=== PATIENT | female | born 1970 | race Caucasian/White ===

== ENCOUNTER 2016-07-10 15:00 | Emergency (ER) | payer SELFPAY ==
[~2016-07-10] VITALS: Ht 165.1 cm; Wt 85.5 kg
[~2016-07-10 15:00] MED LIST: CARV12.5 PO; CITA20TA4 PO; FURO20 PO; KCL20 PO; LISI10 PO; NORC10TA2 PO; PHEN60TA PO; XANA1TAB6 PO
[2016-07-10 15:10] VITALS: BP 123/73; PULSE 56; RESP 16; TEMP 98.2; O2SAT 100; O2SAT 99
[2016-07-10] MEDS ORDERED: SODIUM CHLORIDE 0.9% FLUSH 10 ML FLUSH IVF PRN (15:15)
--- NOTE | 2016-07-10 15:28 | PD ---
HPI Chief Complaint: Chest Pain Time Seen by Provider: 15:07 Travel History International Travel<30 days: No Contact w/Intl Traveler<30days: No Traveled to known affect area: No History of Present Illness HPI Is a 46-year-old woman who presents to the emergency department complaining of chest pain and trouble breathing. She states she was retaining water and had increased lower extremity swelling and weight gain and so she went to her primary doctor about a week ago and increased her Lasix from 20 twice a day to 40 in the morning and 20 at night. Lower extremity swelling is improved but she is continuing to have shortness of breath, especially at night, with orthopnea and increasing dyspnea on exertion. She states she often wakes up at night short of breath and has to sit up the side of the bed. States she often has sweats but denies any fevers or chills. She otherwise had been feeling generally well. She called her product safety consultant, Dr. Shay RIVERA, whose office referred her to the emergency department. History Past Medical History Narrative Medical Hypertension Diabetes Anxiety Seizures Remote tobacco use, quit 10 years ago LMP: 07/10/16 : 4 Para: 3 Social History Alcohol Use: No Tobacco Use: No (quit 2007 after 10 year hx) Allergies-Medications (Allergen,Severity, Reaction): Coded Allergies: No Known Allergies (Verified , 07/10/16) Reported Meds & Prescriptions Reported Meds & Active Scripts Active Kcl 20 Meq Tab (Potassium Chloride) 20 Meq Tabcr 30 Meq PO DAILY 30 Days Phenobarbital 60 Mg Tab 60 Mg PO Q8HR 30 Days Prinivil 10 mg (Lisinopril) 10 Mg Tab 10 Mg PO Q12HR 30 Days Lasix 20 Mg Tab (Furosemide) 20 Mg Tab 20 Mg PO BID@09,18 30 Days Coreg 12.5 mg (Carvedilol) 12.5 Mg Tab 25 Mg PO Q12HR 30 Days Reported [place] 10-325 mg (Hydrocodone-Acetaminophen 10-325 mg) 1 Tab 1 Tab PO Q4H PRN Citalopram Hydrobromide 20 Mg Tab 20 Mg PO DAILY Xanax 1 mg (Alprazolam) Alprazolam 1 mg Tab 1 Tab PO TID PRN Review of Systems Except as stated in HPI: all other systems reviewed are Neg Physical Exam Narrative GENERAL: This is a well-appearing 46-year-old man, no acute distress. SKIN: Warm and dry. NECK: Trachea midline. No JVD. CARDIOVASCULAR: Regular rate and rhythm. No murmur appreciated. RESPIRATORY: No accessory muscle use. Clear to auscultation. Breath sounds equal bilaterally. GASTROINTESTINAL: Abdomen soft, non-tender, nondistended. Hepatic and splenic margins not palpable. MUSCULOSKELETAL: No obvious deformities. No significant edema at this time. NEUROLOGICAL: Awake and alert. No obvious cranial nerve deficits. Motor grossly within normal limits. Normal speech. PSYCHIATRIC: Appropriate mood and affect; insight and judgment normal. Data Data Last Documented VS Vital Signs Date Time Temp Pulse Resp B/P Pulse Ox O2 Delivery O2 Flow Rate FiO2 07/10/16 15:19 57 16 100 Nasal Cannula 2 07/10/16 15:10 98.2 123/73 Orders Complete Blood Count With Diff (07/10/16 15:15) Comprehensive Metabolic Panel (07/10/16 15:15) B-Type Natriuretic Peptide (07/10/16 15:15) Magnesium (Mg) (07/10/16 15:15) Troponin I (07/10/16 15:15) Iv Access Insert/Monitor (07/10/16 15:15) Ecg Monitoring (07/10/16 15:15) Oximetry (07/10/16 15:15) Oxygen Administration (07/10/16 15:15) Chest, Pa & Lat (07/10/16 15:15) Sodium Chloride 0.9% Flush (Ns Flush) (07/10/16 15:15) Labs Laboratory Tests Test 07/10/16 15:40 White Blood Count 7.7 TH/MM3 Red Blood Count 4.91 MIL/MM3 Hemoglobin 11.4 GM/DL Hematocrit 35.3 % Mean Corpuscular Volume 71.9 FL Mean Corpuscular Hemoglobin 23.2 PG Mean Corpuscular Hemoglobin 32.3 % Concent Red Cell Distribution Width 16.8 % Platelet Count 284 TH/MM3 Mean Platelet Volume 9.0 FL Neutrophils (%) (Auto) 55.4 % Lymphocytes (%) (Auto) 36.4 % Monocytes (%) (Auto) 7.2 % Eosinophils (%) (Auto) 0.5 % Basophils (%) (Auto) 0.5 % Neutrophils # (Auto) 4.2 TH/MM3 Lymphocytes # (Auto) 2.8 TH/MM3 Monocytes # (Auto) 0.6 TH/MM3 Eosinophils # (Auto) 0.0 TH/MM3 Basophils # (Auto) 0.0 TH/MM3 CBC Comment AUTO DIFF Sodium Level 137 MEQ/L Potassium Level 4.5 MEQ/L Chloride Level 103 MEQ/L Carbon Dioxide Level 25.3 MEQ/L Anion Gap 9 MEQ/L Blood Urea Nitrogen 18 MG/DL Creatinine 0.84 MG/DL Estimat Glomerular Filtration 73 ML/MIN Rate Random Glucose 89 MG/DL Calcium Level 9.5 MG/DL Magnesium Level 2.2 MG/DL Total Bilirubin 0.2 MG/DL Aspartate Amino Transf 10 U/L (AST/SGOT) Alanine Aminotransferase 17 U/L (ALT/SGPT) Alkaline Phosphatase 87 U/L Troponin I LESS THAN 0.02 NG/ML B-Type Natriuretic Peptide 12 PG/ML Total Protein 8.2 GM/DL Albumin 3.7 GM/DL [facility] Medical Decision Making Medical Screen Exam Complete: Yes Emergency Medical Condition: Yes Interpretation(s) My review of EKG: Normal sinus rhythm at a rate of 62, slightly leftward axis, normal intervals, poor R-wave progression, no acute ischemia. LABS: CBC unremarkable. CMP unremarkable Troponin negative BNP 12 Chest x-ray: Normal examination. Differential Diagnosis CHF, ACS, volume overload, other Narrative Course Medical decision making INITIAL: 46-year-old woman who presents to the emergency Department with shortness of breath and intermittent chest pain. Distally she had more volume overload is been gradually improving. She states before her ankle could not spent on her ankle and now is loosely on the ankle. I don't see any pitting edema in the lower extremities now. She still having orthopnea and dyspnea on exertion. Her lungs are clear. We'll check labs, troponin, EKG, chest x-ray, reassess. FINAL: Initial workups unremarkable. I think patient has been successfully diuresis at home with increased dose of Lasix prescribed by her primary physician. She looks well now. BNP is not elevated. Is no pulmonary edema. Troponin is negative. I reviewed the patient's heart catheterization from last year. She had clean coronaries no coronary artery calcifications. I don't think she needs to stay for chest pain Center evaluation. Recommend close follow-up with her product safety consultant. Patient agreeable. Diagnosis Primary Impression: Cardiomyopathy Qualified Code: I42.9 - Cardiomyopathy, unspecified type Additional Impression: Congestive heart failure Additional Instructions: Continue increased dose of Lasix as prescribed by your primary physician. Follow-up with your product safety consultant in the next one to 2 weeks. Return to the emergency department for any worsening chest pain, trouble breathing, or any other new or worsening symptoms. Med/Other Pt SpecificInfo: No Change to Meds Disposition: 01 DISCHARGE HOME Condition: Stable Homero Daniels MD Jul 10, 2016 15:28
[2016-07-10 16:00] VITALS: BP 100/53; PULSE 61; RESP 16; O2SAT 100
[2016-07-10 16:16] LABS: CHLORIDE 103 MEQ/L (98-107); POTASSIUM 4.5 MEQ/L (3.5-5.1); SODIUM (NA) 137 MEQ/L (136-145)
[2016-07-10 16:17] LABS: AUTOMATED NEUTROPHIL # 4.2 TH/MM3 (1.8-7.7); BASOPHIL % 0.5 % (0.0-2.0); EOSINOPHIL % 0.5 % (0.0-4.0); HEMATOCRIT 35.3 % (35.0-46.0); LYMPH % 36.4 % (9.0-44.0); LYMPHOCYTE # 2.8 TH/MM3 (1.0-4.8); MEAN CELL VOLUME 71.9 FL (80.0-100.0); MEAN CORPUSCULAR HEMOGLOBIN 23.2 PG (27.0-34.0); MEAN CORPUSCULAR HGB CONC 32.3 % (32.0-36.0); MONO % 7.2 % (0.0-8.0); NEUT % 55.4 % (16.0-70.0); PLATELET COUNT 284 TH/MM3 (150-450); RED BLOOD COUNT 4.91 MIL/MM3 (4.00-5.30); RED CELL DISTRIBUTION WIDTH 16.8 % (11.6-17.2); WHITE BLOOD COUNT 7.7 TH/MM3 (4.0-11.0)
[2016-07-10 16:19] LABS: HEMO FLAGS AUTO DIFF
[2016-07-10 16:20] LABS: ANION GAP 9 MEQ/L (5-15); BICARBONATE 25.3 MEQ/L (21.0-32.0); BLOOD UREA NITROGEN 18 MG/DL (7-18); MAGNESIUM 2.2 MG/DL (1.5-2.5)
[2016-07-10 16:23] LABS: ALT (GPT) 17 U/L (10-53); AST (GOT) 10 U/L (15-37); GLOMERULAR FILTRATION RATE 73 ML/MIN (>89)
[2016-07-10 16:24] LABS: TOTAL BILIRUBIN ADULT 0.2 MG/DL (0.2-1.0)
--- NOTE | 2016-07-10 16:25 | RADHPO ---
EXAM DATE/TIME: 07/10/2016 15:51 [facility] COMPARISON: No previous studies available for comparison. INDICATIONS : Chest pain and short of breath. MEDICAL HISTORY : Congestive heart failure. SURGICAL HISTORY : None. ENCOUNTER: Initial ACUITY: 4 - 6 days PAIN SCORE: 6/10 LOCATION: Bilateral upper chest FINDINGS: PA and lateral views of the chest demonstrate the lungs to be symmetrically aerated without evidence of mass, infiltrate or effusion. The cardiomediastinal contours are unremarkable. Osseous structure s are intact. CONCLUSION: Normal examination. Lewis George Jr., MD on July 10, 2016 at 16:23 Board Certified Radiologist. This report was verified electronically.
[2016-07-10 16:26] LABS: ALKALINE PHOSPHATASE 87 U/L (45-117)
[2016-07-10 16:56] LABS: STOMATOCYTES 1+ (NORMAL)
[2016-07-10 16:57] LABS: PLATELET ESTIMATE SMEAR NORMAL (NORMAL); PLATELET MORPHOLOGY NORMAL (NORMAL); SCAN/DIFF AUTO DIFF CONFIRMED
[2016-07-10] MEDS ORDERED: FURO40TA PO (17:16)
[2016-07-10] MEDS ORDERED: LISI-515 PO (17:16)
[2016-07-10] MEDS ORDERED: AMLO10TA2 PO (17:16)
[2016-07-10] MEDS ORDERED: CITA20TA4 PO (17:16)
[2016-07-10] MEDS ORDERED: CARV25TA PO (17:16)
[2016-07-10] MEDS ORDERED: POTA1TAB4 PO (17:16)
[2016-07-10] MEDS ORDERED: MOME16.7 INH (17:16)
[2016-07-10] MEDS ORDERED: PHEN-524 PO (17:16)
[2016-07-10] MEDS ORDERED: METF500T PO (17:16)
[2016-07-10] MEDS ORDERED: FURO20TA PO (17:16)
[2016-07-10] MEDS ORDERED: ALPR1TAB3 PO (17:16)
[2016-07-10] MEDS ORDERED: HYDR-3535 PO (17:16)
[2016-07-10 17:28] VITALS: BP_SYST 101; BP_SYST 90; BP_DIAS 58
--- NOTE | 2016-07-12 07:51 | EKG ---
Date Performed: 07/10/2016 Time Performed: 15:02:22 PTAGE: 46 years EKG: Sinus rhythm Poor R wave progression - probable normal variant Borderline ECG Compared to PREVIOUS TRACING , the marked anterolateral ST-T wave changes have resolved. The QT prolo ngation has resolved. Clinical correlation is recommended. PREVIOUS TRACING 06/17/2015 06.14. 36 DOCTOR: Kati De Leon Interpretating Date/Time 07/12/2016 07:48:55
== END 2016-07-10 17:35 | disposition home or self-care (01) ==
LOC: PHED 15:00
DX: I42.9 Cardiomyopathy, unspecified (principal); I50.9 Heart failure, unspecified; Z79.899 Other long term (current) drug therapy; Z87.891 Personal history of nicotine dependence
CPT/HCPCS: 71020; 80053; 83735; 83880; 84484; 85025; 93005

== ENCOUNTER 2017-01-05 19:18 | Emergency (ER) | payer SELFPAY ==
[~2017-01-05] VITALS: Ht 165.1 cm; Wt 83.7 kg
[~2017-01-05 19:18] MED LIST changes: +ALPR1TAB3 PO; +AMLO10TA2 PO; -CARV12.5 PO; +CARV25TA PO; -FURO20 PO; +FURO20TA PO; +FURO40TA PO; +HYDR-3535 PO; -KCL20 PO; +LISI-515 PO; -LISI10 PO; +METF500T PO; +MOME16.7 INH; -NORC10TA2 PO; +PHEN-524 PO; -PHEN60TA PO; +POTA1TAB4 PO; -XANA1TAB6 PO
[2017-01-05 19:24] VITALS: BP 148/58; PULSE 62; RESP 16; TEMP 99.1; O2SAT 97
[2017-01-05 19:42] VITALS: BP 152/73; PULSE 65; RESP 18; TEMP 99.1; O2SAT 98
[2017-01-05] MEDS ORDERED: SODIUM CHLOR 0.9% 1000 ML INJ 1,000 ML IV SCH (19:52)
[2017-01-05] MEDS ORDERED: LISI10TA3 PO (19:53)
[2017-01-05] MEDS ORDERED: CITA40TA4 PO (19:53)
[2017-01-05] MEDS ORDERED: GEMF600T PO (19:53)
--- NOTE | 2017-01-05 19:58 | PD ---
HPI Chief Complaint: Abdominal Pain Time Seen by Provider: 19:52 Travel History International Travel<30 days: No Contact w/Intl Traveler<30days: No Traveled to known affect area: No History of Present Illness HPI The patient is a 46-year-old female that complains of 5 days of right upper quadrant pain which radiates to the right scapular region. Her pain is an 8/10 and a sharp pain. She denies any fever. She does have nausea and vomiting. She she has never had any kind of the gallbladder workup. She has had an appendectomy. She denies any dysuria, frequency or urgency. She denies any melanotic or bloody stools. PFSH Past Medical History Anxiety: Yes Depression: Yes Cancer: No Cardiovascular Problems: Yes (hx CHF) Congestive Heart Failure: Yes (intubated on initial diagnosis in february 2015) Coronary Artery Disease: Yes Diabetes: Yes Patient Takes Glucophage: Yes Diminished Hearing: No Endocrine: Yes Gastrointestinal Disorders: No Genitourinary: No Hypertension: Yes Immune Disorder: No Implanted Vascular Access Dvce: No Psychiatric: Yes Reproductive: No Respiratory: Yes (chf) Immunizations Current: Yes Myocardial Infarction: Yes (x1 2016) Seizures: Yes Thyroid Disease: No Tetanus Vaccination: Unknown Influenza Vaccination: No ?: Not LMP: 8-25-17 : 4 Para: 3 Tubal Ligation: Yes Past Surgical History Abdominal Surgery: Yes (PYLORIC STENOSIS SURGERY INFANT) Appendectomy: Yes Section: Yes (x3) Gynecologic Surgery: Yes (TUBAL LIGATION, C-SEC X3) Thoracic Surgery: Yes (PYLORIC STENOSIS INFANT) Other Surgery: Yes Social History Alcohol Use: Yes (occas. wine) Tobacco Use: No (quit 2007 after 10 year hx cigs) Substance Use: No Allergies-Medications (Allergen,Severity, Reaction): Coded Allergies: No Known Allergies (Verified , 01/05/17) Reported Meds & Prescriptions Reported Meds & Active Scripts Active Reported Gemfibrozil 600 Mg Tab 600 Mg PO BIDAC Take 30 minutes prior to breakfast and dinner. Citalopram (Citalopram Hydrobromide) 40 Mg Tab 40 Mg PO DAILY Lisinopril 10 Mg Tab 10 Mg PO DAILY Carvedilol 25 Mg Tab 25 Mg PO BID Metformin (Metformin HCl) 500 Mg Tab 500 Mg PO BIDPC With meals Phenobarbital 60 Mg Tab 60 Mg PO BID K-Tab (Potassium Chloride) 20 Meq Tab 20 Meq PO DAILY Lortab (Hydrocodone-Acetaminophen) 10-325 Mg Tab 1 Tab PO QID PRN Alprazolam 1 Mg Tab 1 Mg PO QID PRN Furosemide 20 Mg Tab 20 Mg PO HS Furosemide 40 Mg Tab 40 Mg PO DAILY Review of Systems Except as stated in HPI: all other systems reviewed are Neg Physical Exam Narrative GENERAL: The patient is obese, alert, oriented 3 in moderate to severe distress with her right upper quadrant discomfort. Her vital signs show temperature 99.1 and blood pressure 148/58 but are otherwise normal. SKIN: Focused skin assessment warm/dry. HEAD: Atraumatic. Normocephalic. EYES: Pupils equal and round. No scleral icterus. No injection or drainage. ENT: No nasal bleeding or discharge. Mucous membranes pink and moist. NECK: Trachea midline. No JVD. CARDIOVASCULAR: Regular rate and rhythm. No murmur appreciated. RESPIRATORY: No accessory muscle use. Clear to auscultation. Breath sounds equal bilaterally. GASTROINTESTINAL: Abdomen soft, with tenderness to direct palpation in the right upper quadrant, nondistended. Hepatic and splenic margins not palpable. Mackay's sign is positive. MUSCULOSKELETAL: No obvious deformities. No clubbing. No cyanosis. No edema. NEUROLOGICAL: Awake and alert. No obvious cranial nerve deficits. Motor grossly within normal limits. Normal speech. PSYCHIATRIC: Appropriate mood and affect; insight and judgment normal. Data Data Last Documented VS Vital Signs Date Time Temp Pulse Resp B/P (MAP) Pulse Ox O2 Delivery O2 Flow Rate FiO2 01/05/17 21:05 69 18 119/70 (86) 98 Room Air 01/05/17 19:42 99.1 Orders Orders Complete Blood Count With Diff (01/05/17 19:52) Comprehensive Metabolic Panel (01/05/17 19:52) Lipase (01/05/17 19:52) Urinalysis - C+S If Indicated (01/05/17 19:52) Us Abdomen Gallbladder (01/05/17 ) Iv Access Insert/Monitor (01/05/17 19:52) Ecg Monitoring (01/05/17 19:52) Oximetry (01/05/17 19:52) Ondansetron Inj (Zofran Inj) (01/05/17 20:00) Sodium Chlor 0.9% 1000 Ml Inj (Ns 1000 M (01/05/17 19:52) Sodium Chloride 0.9% Flush (Ns Flush) (01/05/17 20:00) Hydromorphone Pf Inj (Dilaudid Pf Inj) (01/05/17 20:00) Urine Culture (01/05/17 20:00) Labs Laboratory Tests Test 01/05/17 20:00 White Blood Count 7.1 TH/MM3 Red Blood Count 4.73 MIL/MM3 Hemoglobin 12.2 GM/DL Hematocrit 36.4 % Mean Corpuscular Volume 77.0 FL Mean Corpuscular Hemoglobin 25.8 PG Mean Corpuscular Hemoglobin Concent 33.5 % Red Cell Distribution Width 16.5 % Platelet Count 238 TH/MM3 Mean Platelet Volume 8.7 FL Neutrophils (%) (Auto) 58.0 % Lymphocytes (%) (Auto) 35.6 % Monocytes (%) (Auto) 5.4 % Eosinophils (%) (Auto) 0.5 % Basophils (%) (Auto) 0.5 % Neutrophils # (Auto) 4.2 TH/MM3 Lymphocytes # (Auto) 2.5 TH/MM3 Monocytes # (Auto) 0.4 TH/MM3 Eosinophils # (Auto) 0.0 TH/MM3 Basophils # (Auto) 0.0 TH/MM3 CBC Comment DIFF FINAL Differential Comment Urine Collection Type VOIDED Urine Color STRAW Urine Turbidity HAZY Urine pH 6.0 Urine Specific [place] 1.006 Urine Protein NEG mg/dL Urine Glucose (UA) NEG mg/dL Urine Ketones NEG mg/dL Urine Occult Blood TRACE Urine Nitrite NEG Urine Bilirubin NEG Urine Leukocyte Esterase SMALL Urine RBC 0-3 /hpf Urine WBC 9-14 /hpf Urine Squamous Epithelial Cells 0-5 /hpf Urine Bacteria MOD /hpf Microscopic Urinalysis Comment CULTURE INDICATED Urine Collection Time 1999 Blood Urea Nitrogen 11 MG/DL Creatinine 0.77 MG/DL Random Glucose 81 MG/DL Total Protein 9.0 GM/DL Albumin 3.9 GM/DL Calcium Level 9.4 MG/DL Alkaline Phosphatase 80 U/L Aspartate Amino Transf (AST/SGOT) 12 U/L Alanine Aminotransferase (ALT/SGPT) 14 U/L Total Bilirubin 0.3 MG/DL Sodium Level 134 MEQ/L Potassium Level 3.6 MEQ/L Chloride Level 99 MEQ/L Carbon Dioxide Level 26.3 MEQ/L Anion Gap 9 MEQ/L Estimat Glomerular Filtration Rate 80 ML/MIN Lipase 212 U/L MDM Medical Decision Making Medical Screen Exam Complete: Yes Emergency Medical Condition: Yes Medical Record Reviewed: Yes Interpretation(s) The ultrasound shows minimal gallbladder sludge but is otherwise unremarkable sonogram of the abdomen. Specifically, there is no wall thickening or pericholecystic fluid. The pancreas was within normal limits. The urine shows hazy turbidity, small leukocyte esterase, trace occult blood with 9-14 white cells and moderate bacteria and culture is indicated. The complete metabolic profile shows a sodium of 134, GFR of 80 with total protein of 9.0 but is otherwise unremarkable. The lipase is normal. The CBC is normal. Differential Diagnosis Pyelonephritis, acute cholecystitis, cholelithiasis with colic, pancreatitis, dehydration, electrolyte disorder, renal insufficiency, anemia, ulcer pain Narrative Course The patient may have had colic from the sludge or this could be an ulcer. At this time it is abdominal pain of unknown etiology. Her pain is only a 3/10 at this time. She will be given Lortab 5, Phenergan and Prilosec. She needs to follow-up with a paint pourer. She also has a urinary tract infection. Diagnosis Primary Impression: Abdominal pain of unknown etiology Additional Impression: UTI (urinary tract infection) Additional Instructions: For the urinary tract infection we will prescribe Cipro 500 mg twice daily for 10 days. This is free of [facility]. We will give Phenergan for nausea and Lortab 5 for pain. You need to see a paint pourer. Med/Other Pt SpecificInfo: Prescription(s) given Scripts Ciprofloxacin (Cipro) 500 Mg Tab 500 MG PO BID for Infection for 10 Days, #20 TAB 0 Refills Prov: Luis Alberto Rico MD 01/05/17 Hydrocodone-Acetaminophen (Lortab) 5-325 Mg Tab 1 TAB PO Q4H Y for PAIN, #30 TAB 0 Refills Prov: Luis Alberto Rico MD 01/05/17 Promethazine (Phenergan) 25 Mg Tablet 25 MG PO Q6H Y for NAUSEA OR VOMITING, #30 TAB 0 Refills Prov: Luis Alberto Rico MD 01/05/17 Disposition: 01 DISCHARGE HOME Condition: Stable Luis Alberto Rico MD Jan 05, 2017 19:58
[2017-01-05 20:00] VITALS: O2SAT 98
[2017-01-05] MEDS ORDERED: SODIUM CHLORIDE 0.9% FLUSH 10 ML FLUSH IV FLUSH PRN (20:00)
[2017-01-05] MEDS ORDERED: ONDANSETRON HCL 4 MG/2 ML VIAL IVP ONE (20:00)
[2017-01-05] MEDS ORDERED: HYDROmorphone HCL PF 1 MG/ML VIAL IVS ONE (20:00)
[2017-01-05 20:14] LABS: AUTOMATED NEUTROPHIL # 4.2 TH/MM3 (1.8-7.7); BASOPHIL % 0.5 % (0.0-2.0); EOSINOPHIL % 0.5 % (0.0-4.0); HEMATOCRIT 36.4 % (35.0-46.0); HEMO FLAGS DIFF FINAL; LYMPH % 35.6 % (9.0-44.0); LYMPHOCYTE # 2.5 TH/MM3 (1.0-4.8); MEAN CORPUSCULAR HEMOGLOBIN 25.8 PG (27.0-34.0); MEAN CORPUSCULAR HGB CONC 33.5 % (32.0-36.0); MONO % 5.4 % (0.0-8.0); PLATELET COUNT 238 TH/MM3 (150-450); RED BLOOD COUNT 4.73 MIL/MM3 (4.00-5.30); RED CELL DISTRIBUTION WIDTH 16.5 % (11.6-17.2); WHITE BLOOD COUNT 7.1 TH/MM3 (4.0-11.0)
[2017-01-05 20:15] LABS: BLOOD, URINE TRACE (NEG); GLUCOSE,URINE NEG (NEG); KETONE, URINE NEG (NEG); NITRITE,URINE NEG (NEG)
[2017-01-05 20:24] LABS: CHLORIDE 99 MEQ/L (98-107); POTASSIUM 3.6 MEQ/L (3.5-5.1); SODIUM (NA) 134 MEQ/L (136-145)
[2017-01-05 20:28] LABS: ANION GAP 9 MEQ/L (5-15); BICARBONATE 26.3 MEQ/L (21.0-32.0); BLOOD UREA NITROGEN 11 MG/DL (7-18)
[2017-01-05 20:29] LABS: METHOD OF COLLECTION VOIDED
[2017-01-05 20:30] LABS: BACTERIA, URINE MOD /hpf; COMMENT (UR) CULTURE INDICATED; CULTURE IF INDICATED CULTURE INDICATED; RBC, URINE 0-3 /hpf (0-3); SQUAMOUS EPITHELIAL CELL URINE 0-5 /hpf (0-5); URINE COLOR STRAW (YELLW/STRAW)
[2017-01-05 20:31] LABS: ALT (GPT) 14 U/L (10-53); AST (GOT) 12 U/L (15-37); GLOMERULAR FILTRATION RATE 80 ML/MIN (>89)
[2017-01-05 20:32] LABS: TOTAL BILIRUBIN ADULT 0.3 MG/DL (0.2-1.0)
[2017-01-05 20:34] LABS: ALKALINE PHOSPHATASE 80 U/L (45-117)
[2017-01-05 21:05] VITALS: BP 119/70; PULSE 69; RESP 18; O2SAT 98
--- NOTE | 2017-01-05 21:15 | RADRPT ---
EXAM DATE/TIME: 01/05/2017 20:42 [facility] COMPARISON: US ABDOMEN - GALLBLADDER, January 29, 2012, 17:08. INDICATIONS : Right upper quadrant pain. MEDICAL HISTORY : Congestive heart failure. Coronary artery disease. Congestive heart failure. Diabetes. SURGICAL HISTORY : Tubal ligation. section. Appendectomy. Pylorus repair. ENCOUNTER: Subsequent ACUITY: 4-6 days PAIN SCORE: 3/10 LOCATION: Right upper quadrant MEASUREMENTS: LIVER: 14.4 cm length COMMON DUCT: 5 mm RIGHT KIDNEY: 10.1 x 5.1 x 5.1 cm FINDINGS: LIVER: Normal echotexture without focal lesion or ductal dilatation. Hepatopedal flow is noted within the p ortal vein. COMMON DUCT: No intraluminal mass or stone visualized. GALLBLADDER: Minimal sludge is noted. Contains no stones, demonstrates no wall thickening or pericholecystic fluid . PANCREAS: The visualized portions are within normal limits. RIGHT KIDNEY: No evidence of hydronephrosis, stone, or mass. CONCLUSION: Minimal gallbladder sludge. Otherwise unremarkable sonogram of the abdomen. Rakesh Victor MD on January 05, 2017 at 21:13 Board Certified Radiologist. This report was verified electronically.
[2017-01-05] MEDS ORDERED: HYDR-3533 PO (21:31)
[2017-01-05] MEDS ORDERED: CIPR-9 PO (21:31)
[2017-01-05] MEDS ORDERED: PROM25TA10 PO (21:31)
[2017-01-05] MEDS ORDERED: CIPROFLOXACIN 500 MG TAB PO ONE (21:45)
[2017-01-05 21:54] VITALS: BP 118/72; PULSE 68; RESP 18; O2SAT 98
== END 2017-01-05 22:15 | disposition home or self-care (01) ==
LOC: PHED 19:18
DX: N39.0 Urinary tract infection, site not specified (principal); E11.9 Type 2 diabetes mellitus without complications; I11.0 Hypertensive heart disease with heart failure; I25.10 Atherosclerotic heart disease of native coronary artery without angina pectoris; I50.9 Heart failure, unspecified; I25.2 Old myocardial infarction; F41.9 Anxiety disorder, unspecified
CPT/HCPCS: 76705; 80053; 81001; 83690; 85025; 87077; 87086; 87186; 96361; 96374; 96375; 99284; J1170; J2405; J7030

== ENCOUNTER 2017-06-01 15:26 | Emergency (ER) | payer SELFPAY ==
[~2017-06-01] VITALS: Ht 165.1 cm; Wt 83.5 kg
[~2017-06-01 15:26] MED LIST changes: -AMLO10TA2 PO; +CIPR-9 PO; -CITA20TA4 PO; +CITA40TA4 PO; +GEMF600T PO; +HYDR-3533 PO; -LISI-515 PO; +LISI10TA3 PO; -MOME16.7 INH; +PROM25TA10 PO
[2017-06-01 15:33] VITALS: BP 118/63; PULSE 65; RESP 16; TEMP 98.5; O2SAT 98
--- NOTE | 2017-06-01 16:06 | PD ---
HPI Chief Complaint: ENT Complaint Time Seen by Provider: 15:56 Travel History International Travel<30 days: No Contact w/Intl Traveler<30days: No Traveled to known affect area: No History of Present Illness HPI 47-year-old female presents to the emergency Department with complaint of sore throat that started on Sunday. Reports cough, nasal congestion, right ear pain that onset on Sunday. Reports fever that onset yesterday with MAXIMUM TEMPERATURE of 101.0. Denies lump in throat, difficulty swallowing, unusual drooling. Reports painful swallowing. Reports, headache, chills. Denies vomiting, chest pain, shortness of breath, abdominal pain. Reports pain in her left upper back with deep breathing. She's been exposed to others with flu, bronchitis and other illnesses recently. In taking Mucinex for symptom management. History of hypertension. No known allergies. Has primary care provider. Has no medical complaints. No other modifying factors or associated signs and symptoms. PFSH Past Medical History Anxiety: Yes Depression: Yes Cancer: No Cardiovascular Problems: Yes (hx CHF) Congestive Heart Failure: Yes (intubated on initial diagnosis in february 2015) Coronary Artery Disease: Yes Diabetes: Yes Patient Takes Glucophage: No Diminished Hearing: No Endocrine: Yes Gastrointestinal Disorders: No Genitourinary: No Hypertension: Yes Immune Disorder: No Implanted Vascular Access Dvce: No Psychiatric: Yes Reproductive: No Respiratory: Yes (chf) Immunizations Current: Yes Myocardial Infarction: Yes (x1 2016) Seizures: Yes Thyroid Disease: No ?: Not : 4 Para: 3 Tubal Ligation: Yes Past Surgical History Abdominal Surgery: Yes (PYLORIC STENOSIS SURGERY INFANT) Appendectomy: Yes Section: Yes (x3) Gynecologic Surgery: Yes (TUBAL LIGATION, C-SEC X3) Thoracic Surgery: Yes (PYLORIC STENOSIS ) Other Surgery: Yes Social History Alcohol Use: Yes (occas. wine) Tobacco Use: No (quit 2007 after 10 year hx cigs) Substance Use: No Allergies-Medications (Allergen,Severity, Reaction): Coded Allergies: No Known Allergies (Verified Adverse Reaction, Unknown, 06/01/17) Reported Meds & Prescriptions Reported Meds & Active Scripts Active Magic Mouthwash Pediatric/Adult Liq (Lidocaine/Diphenhydr/Alum/Mg/Simeth) 60 Ml Susp 5 Ml SWISH-SWAL Q3HR PRN Each 5mL contains: Diphenydramine 4.5mg, Viscous Lidocaine 2% 10mg, Maalox Advanced Regular Strength 2.7ml Ibuprofen 800 Mg Tab 800 Mg PO Q6HR PRN Reported Gemfibrozil 600 Mg Tab 600 Mg PO BIDAC Take 30 minutes prior to breakfast and dinner. Citalopram (Citalopram Hydrobromide) 40 Mg Tab 40 Mg PO DAILY Lisinopril 10 Mg Tab 10 Mg PO DAILY Carvedilol 25 Mg Tab 25 Mg PO BID Metformin (Metformin HCl) 500 Mg Tab 500 Mg PO BIDPC With meals Phenobarbital 60 Mg Tab 60 Mg PO BID K-Tab (Potassium Chloride) 20 Meq Tab 20 Meq PO DAILY Alprazolam 1 Mg Tab 1 Mg PO QID PRN Furosemide 20 Mg Tab 20 Mg PO HS Furosemide 40 Mg Tab 40 Mg PO DAILY Review of Systems Except as stated in HPI: all other systems reviewed are Neg Physical Exam Narrative GENERAL: Well-nourished, well-developed female patient, in no acute distress; afebrile, nontoxic-appearing SKIN: Warm and dry. No rash. HEAD: Atraumatic. Normocephalic. EYES: Pupils equal and round. No scleral icterus. No injection or drainage. ENT: Mucosa pink and moist. No erythema or exudates. No uvular edema. No uvular , palatal, or tonsillar deviation. Airway patent. EARS: Bilateral pinnae and external canals appear within normal limits. Bilateral tympanic membranes without erythema, dullness or perforation. NECK: Trachea midline. No lymphadenopathy. CARDIOVASCULAR: Regular rate and rhythm. No murmur appreciated. RESPIRATORY: No accessory muscle use. Clear to auscultation. Breath sounds equal bilaterally. No retractions or tachypnea. GASTROINTESTINAL: Abdomen soft, non-tender, nondistended. Hepatic and splenic margins not palpable. Bowel sounds are active 4 quadrants. MUSCULOSKELETAL: No obvious deformities. No clubbing. No cyanosis. No edema. NEUROLOGICAL: Awake and alert. Oriented 3. No obvious cranial nerve deficits. Motor grossly within normal limits. Normal speech. Moves all extremities. 5/5 strength to all extremities. PSYCHIATRIC: Appropriate mood and affect; insight and judgment normal. Data Data Last Documented VS Vital Signs Date Time Temp Pulse Resp B/P (MAP) Pulse Ox O2 Delivery O2 Flow Rate FiO2 06/01/17 15:33 98.5 65 16 118/63 (81) 98 Orders Orders Chest, Single Ap (06/01/17 16:03) Group A Rapid Strep Screen (06/01/17 16:03) Influenzae A/B Antigen (06/01/17 16:03) Strep Culture (Group A) (06/01/17 16:10) Ed Discharge Order (06/01/17 17:29) MDM Medical Decision Making Medical Screen Exam Complete: Yes Emergency Medical Condition: Yes Medical Record Reviewed: Yes Differential Diagnosis Influenza, strep pharyngitis, pneumonia, bronchitis, upper respiratory infection Narrative Course 47-year-old female with cold/flu symptoms. Symptoms started on Sunday with worsening and onset of fever yesterday. MAXIMUM TEMPERATURE 101.0. Patient is afebrile nontoxic appearing in the ER. Influenza, rapid strep, chest x-ray ordered. 1638: Chest x-ray with no acute findings. 1725: Influenza and rapid strep negative. Discussed viral illness and symptomatic management. Ibuprofen and Magic mouthwash prescribed for home. Instructed patient to follow up with primary care provider. Patient verbalizes understanding and agreement with treatment plan. Patient is medically cleared and stable for discharge. Discussed reasons to return to the emergency department. Patient agrees with treatment plan. The patients vital signs are stable and the patient is stable for outpatient follow-up and treatment. Patient discharged home, stable and in no acute distress. Diagnosis Primary Impression: Viral illness Referrals: Primary Care Physician Patient Instructions: Cold Symptoms (ED), General Instructions, Safe Use of Cough and Cold Medicines (ED) Additional Instructions: Ibuprofen or Tylenol as directed and as needed to reduce fever; may alternate ibuprofen and Tylenol as needed every 3 hours to minimize fever [id number] cold/flu medications as directed and as needed for symptom management Get plenty of sleep/rest Drink plenty of fluids to prevent dehydration; such as Gatorade, Powerade, Pedialyte [place] diet to encourage nutrition such as crackers, fruit, applesauce, toast, soup etc. Use an air humidifier/turn off ceiling fans Follow-up with your primary care provider within 1 day Return immediately to the emergency department with worsening of symptoms Med/Other Pt SpecificInfo: Prescription(s) given Scripts Lqviencxayjcbpn-Bdxkpulgm-Fli-Alum-Simeth Liq (Magic Mouthwash Pediatric/Adult Liq) 60 Ml Susp 5 ML SWISH-SWAL Q3HR Y for SORE THROAT, #60 ML 0 Refills Each 5mL contains: Diphenydramine 4.5mg, Viscous Lidocaine 2% 10mg, Maalox Advanced Regular Strength 2.7ml Prov: Flora Villegas 06/01/17 Ibuprofen (Ibuprofen) 800 Mg Tab 800 MG PO Q6HR Y for PAIN, #30 TAB 0 Refills Prov: Flora Villegas 06/01/17 Disposition: 01 DISCHARGE HOME Condition: Stable Flora Villegas Jun 01, 2017 16:06
--- NOTE | 2017-06-01 16:30 | RADRPT ---
EXAM DATE/TIME: 06/01/2017 16:18 [facility] COMPARISON: CHEST SINGLE AP, June 19, 2015, 2:34. INDICATIONS : Cough. MEDICAL HISTORY : Congestive heart failure. Coronary artery disease, Diabetes SURGICAL HISTORY : Tubal ligation. section. Appendectomy. Pylorus repair ENCOUNTER: Initial ACUITY: 4 - 6 days PAIN SCORE: 3/10 LOCATION: Bilateral chest FINDINGS: A single view of the chest demonstrates the lungs to be symmetrically aerated without evidence of mas s, infiltrate or effusion. The cardiomediastinal contours are unremarkable. Osseous structures are intact. CONCLUSION: No acute disease. Misael Hicks MD FACR on June 01, 2017 at 16:29 Board Certified Radiologist. This report was verified electronically.
[2017-06-01] MEDS ORDERED: MAGICPED SWISH-SWAL (17:29)
[2017-06-01] MEDS ORDERED: IBUP1TAB7 PO (17:29)
== END 2017-06-01 17:42 | disposition home or self-care (01) ==
LOC: PHEFT 15:26
DX: B34.9 Viral infection, unspecified (principal); I11.0 Hypertensive heart disease with heart failure; I50.9 Heart failure, unspecified; I25.10 Atherosclerotic heart disease of native coronary artery without angina pectoris; E11.9 Type 2 diabetes mellitus without complications; Z79.84 Long term (current) use of oral hypoglycemic drugs
CPT/HCPCS: 71045; 87081; 87804; 87880; 99284